=== PATIENT | female | born 1935 | race African-American/Black ===

== ENCOUNTER → 2017-03-06 | Outpatient (CLI) | payer MEDICARE, OTHER ==
[2016-07-23 11:00] VITALS: BP 132/48
[~2017-03-06] MED LIST: ACET325T9 PO; ALEN70TA5 PO; AMLO10TA2 PO; AMMO120C TP; ASPI81TA2 PO; ATEN25TA PO; BUPR150T8 PO; CA C1TAB38 PO; CETI10TA22 PO; ESCI20TA10 PO; FENT1PAT90 TP; FLUT16SP2 NS; GABA-585 PO; GUAI600T28 PO; HYDR-2672 PO; HYDR30CR61 TP; LANS30CA17 PO; LORA0.5T PO; MELO-156 PO; METO25TA4 PO; MIRA50TA PO; MOME220A5 IH; MULT-18 PO; NITR0.4T6 SL; POLY17PO5 PO; TAMS0.4C97 PO; TRAZ100T12 PO; TROS60CA2 PO; VENTOLIN HFA18 GM INH
--- NOTE | 2017-03-06 14:41 | RAD ---
CT of the left femur without contrast, 03/06/2017: History: Periprosthetic fracture Noncontrast scans were obtained with multiplanar reconstructions produced. Artifacts arising from the multiple surgical implants degrade image quality. A total knee prosthesis is present. There is an old fracture of the mid to distal femoral shaft at the level of the upper end of the stem of the femoral component of the knee prosthesis. There is a fixation plate present laterally traversing the fracture site. There are multiple associated screws. There are 2 surgical wires encircling the fixation plate at the level of the distal femoral fracture fragment. There are also 2 surgical screws extending from the plate into the lateral aspect of the distal fracture fragment. The upper most screw extends from the fixation plate into the lateral cortex of the proximal fracture fragment. The screw just inferior to this level is fractured. The third fixation screw extends into the lateral aspect of the proximal fracture fragment. There are lucencies surrounding these 2 nonfractured screws in the proximal fracture fragment raising the possibility of loosening. There is also a prominent lucency between the upper end of the fixation plate and surrounding callus. There is abundant callus at the fracture site, however, this does not appear to represent bridging callus. The main fracture line is clearly visible. IMPRESSION: 1. Nonhealed femoral fracture at the level of the superior end of the femoral component of the left knee prosthesis. 2. Lucencies surrounding the upper end of the lateral fixation plate and two of the screws extending into the proximal fracture fragment raise the possibility of loosening. PQRS Compliance Statement: One or more of the following individualized dose reduction techniques were utilized for this examination: 1. Automated exposure control 2. Adjustment of the mA and/or kV according to patient size 3. Use of iterative reconstruction technique
== END | disposition home or self-care (01) ==
LOC: CT 11:18
PROVIDERS: ATTEND Orthopaedic Surgery Sports Medicine
DX: M97.12XD Periprosthetic fracture around internal prosthetic left knee joint, subsequent encounter (principal)
CPT/HCPCS: 73700

== ENCOUNTER → 2017-07-18 | Outpatient (CLI) | payer MEDICARE, OTHER ==
[2016-07-23 11:00] VITALS: BP 132/48
[~2017-07-18] MED LIST changes: +ASPI-630 PO; -ASPI81TA2 PO; -ESCI20TA10 PO; -GUAI600T28 PO; +GUAI600T79 PO; -HYDR-2672 PO; +HYDR-2766 PO; -LANS30CA17 PO; +LANS30CA66 PO; +LEXAPRO20 MG PO; -MELO-156 PO; +MELO7.5T29 PO; +NITR0.4T22 SL; -NITR0.4T6 SL; +POLY17PO29 PO; -POLY17PO5 PO
--- NOTE | 2017-07-18 15:09 | RAD ---
Right shoulder CT Indication: Severe right shoulder pain Technique: CT of the right shoulder without IV contrast with multiplanar reformats. Comparison: None Findings: There is severe joint space narrowing at the glenohumeral joint and acromioclavicular joint with significant productive changes, endplate sclerosis and subchondral cyst formation compatible with advanced osteoarthritis. There is remodeling of the glenoid fossa with more flattening and complete loss of articular cartilage. No acute fracture or dislocation. Fatty infiltration is seen in the rotator cuff muscles suggesting long-standing rotator cuff tear. No joint effusion. No supraclavicular or axillary adenopathy. Visualized right lung is clear. Visualized right ribs are within normal limits. Impression: 1. No acute fracture or dislocation. 2. 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 Moderate osteoarthritis at the acromioclavicular joint. 3. Fatty infiltration within the rotator cuff muscles suggests chronic rotator cuff pathology. PQRS Compliance Statement: One or more of the following individualized dose reduction techniques were utilized for this examination: 1. Automated exposure control 2. Adjustment of the mA and/or kV according to patient size 3. Use of iterative reconstruction technique
== END | disposition home or self-care (01) ==
LOC: CT 13:50
PROVIDERS: ATTEND Orthopaedic Surgery Sports Medicine
DX: M19.011 Primary osteoarthritis, right shoulder (principal)
CPT/HCPCS: 73200

== ENCOUNTER 2017-10-31 12:09 | Emergency (ER) | payer MEDICARE, OTHER ==
[~2017-10-31] VITALS: Ht 157.5 cm; Wt 71.2 kg
[2017-10-31] MEDS ORDERED: diphenhydrAMINE 50 MG/ML VIAL IV ONE (12:45)
--- NOTE | 2017-10-31 12:45 | PHYS DOC ---
Past Medical History Past Medical History: CVA, GERD, Hypertension, NV, Schizophrenia, Stroke Additional Past Medical Histor: CHRONIC COUGH,URINARY INCONTIENCE,OSTEOMYLITIS Past Surgical History: Hysterectomy, Knee Replacement Additional Past Surgical Histo: RAKA,RIGHT EYE BLINDNESS, Alcohol Use: None Drug Use: None Adult General Chief Complaint Chief Complaint: ALLERGIC REACTION HPI HPI Patient is a 81 year old female who presents with complaint of right-sided tongue and lip numbness. The patient states she started having the symptoms shortly after receiving shoulder injections for treatment of arthritis. This took place approximately one hour prior to arrival. Patient states that she has had a history of allergic reactions to local anesthetic and pain medications which caused hives and tongue swelling in the past. Patient denies any swelling or motor weakness associated with her symptoms at this time. Patient states that the numbness is along the right side of her lip and tongue as well as along the gumline. Patient has not had any recent dental procedures. Patient denies any fevers, shortness of breath, headache, or chest pain with her symptoms. Review of Systems Review of Systems Constitutional: Denies fever or chills [] Eyes: Denies change in visual acuity, redness, or eye pain [] HENT: Denies nasal congestion or sore throat [] Respiratory: Denies cough or shortness of breath [] Cardiovascular: Denies chest pain or edema[] GI: Denies abdominal pain, nausea, vomiting, bloody stools or diarrhea [] : Denies dysuria or hematuria [] Musculoskeletal: Denies back pain or joint pain [] Integument: Denies rash or skin lesions [] Neurologic: Numbness to right side of mouth, denies headache or focal weakness[] All other systems were reviewed and found to be within normal limits, except as documented in this note. Current Medications Current Medications Current Medications Medications (Trade) Dose Ordered Sig/Aly Start Time Stop Time Status Last Admin Dose Admin Diphenhydramine HCl (Benadryl) 12.5 mg 1X ONCE 10/31/17 12:45 10/31/17 12:46 DC 10/31/17 13:08 12.5 MG Allergies Allergies Allergies Coded Allergies Type Severity Reaction Last Updated Verified lidocaine Allergy Severe TONGUE SWELLING 10/25/14 Yes quinine Allergy Severe TONGUE SWELLING 07/20/16 Yes Penicillins Allergy Intermediate HIVES 10/25/14 Yes Sulfa (Sulfonamide Antibiotics) Allergy Intermediate HIVES 10/25/14 Yes iodine Allergy Intermediate HIVES 10/25/14 Yes morphine Allergy Intermediate tongue/throat swelling 07/20/16 Yes prochlorperazine Allergy Intermediate 07/20/16 Yes Uncoded Allergies Type Severity Reaction Last Updated Verified GUANINE Allergy Unknown 10/25/14 Physical Exam Physical Exam Constitutional: Alert, afebrile, no acute distress. [] HENT: Normocephalic, atraumatic, bilateral external ears normal, oropharynx moist, no mucosal swelling, no oral exudates, nose normal. [] Eyes: PERRLA, EOMI, conjunctiva normal, no discharge. [] Neck: Normal range of motion, no tenderness, supple, no stridor. [] Cardiovascular:Heart rate regular rhythm, no murmur [] Lungs & Thorax: Bilateral breath sounds clear to auscultation [] Abdomen: Bowel sounds normal, soft, no tenderness, no masses, no pulsatile masses. [] Skin: Warm, dry, no erythema, no rash. [] Back: No tenderness, no CVA tenderness. [] Extremities: Right AKA, no cyanosis, no clubbing, ROM intact, no edema. [] Neurologic: Alert and oriented X 3, normal motor function, decrease sensation to light touch along right lip, no focal deficits noted. [] Current Patient Data Vital Signs Vital Signs Date Time Temp Pulse Resp B/P (MAP) Pulse Ox O2 Delivery O2 Flow Rate FiO2 10/31/17 12:20 97.9 67 18 142/86 (104) 96 Room Air 97.9 EKG EKG Interpreted by me: Heart rate 66, sinus rhythm, left axis deviation, no acute ST /T-wave abnormalities present[] Radiology/Procedures Radiology/Procedures None performed[] Course & Med Decision Making Course & Med Decision Making Pertinent Labs and Imaging studies reviewed. (See chart for details) Patient was given Benadryl in the emergency department. Patient observed in the emergency department with no further evidence of mouth swelling. On reevaluation , patient states her symptoms have resolved at this time. Patient displayed no focal motor deficits on exam. Patient is able to swallow without difficulty and is tolerating oral intake at this time. The patient appears well and will be discharged from the emergency department and transferred back to her residential. Advised return emergency department for any worsening symptoms. Patient voiced understanding and in agreement with treatment plan. Dragon Disclaimer Dragon Disclaimer This electronic medical record was generated, in whole or in part, using a voice recognition dictation system. Departure Departure Impression: Primary Impression: Adverse reaction to anesthetic agent Disposition: HOME, SELF-CARE Condition: IMPROVED Referrals: DREW SMITH MD (PCP) Patient Instructions: Allergies, Generic Additional Instructions: Follow-up he primary doctor in 2-3 days for reevaluation. Return to emergency department for any worsening symptoms. Scripts Diphenhydramine Hcl (BENADRYL) 25 Mg Capsule 25 MG PO Q6-8HRS Y for ALLERGIES, #30 CAP Prov: SANDRA MAYER MD 10/31/17 Problem Qualifiers Primary Impression: Adverse reaction to anesthetic agent Encounter type: initial encounter Qualified Codes: T41.45XA - Adverse effect of unspecified anesthetic, initial encounter SANDRA MAYER MD Oct 31, 2017 12:45
--- NOTE | 2017-10-31 12:46 | EKG ---
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
[2017-10-31] MEDS ORDERED: DIPH25CA58 PO (13:54)
[2017-10-31 14:30] VITALS: BP 169/80
== END 2017-10-31 14:30 | disposition home or self-care (01) ==
LOC: ER 12:09
DX: T41.45XA Adverse effect of unspecified anesthetic, initial encounter (principal); K21.9 Gastro-esophageal reflux disease without esophagitis; I10 Essential (primary) hypertension; F20.9 Schizophrenia, unspecified; G89.29 Other chronic pain; I25.2 Old myocardial infarction; Z86.73 Personal history of transient ischemic attack (TIA), and cerebral infarction without residual deficits; Z88.0 Allergy status to penicillin; Z88.2 Allergy status to sulfonamides; Z88.5 Allergy status to narcotic agent; Z88.8 Allergy status to other drugs, medicaments and biological substances; Z88.4 Allergy status to anesthetic agent; Z91.041 Radiographic dye allergy status; Y92.89 Other specified places as the place of occurrence of the external cause
CPT/HCPCS: 93005; 96374; 99284; J1200